=== PATIENT | female | born 1990 | race Caucasian/White ===

== ENCOUNTER 2017-09-28 15:29 | Emergency (ER) | payer OTHER ==
--- NOTE | 2017-09-28 15:35 | ED Physician Documentation ---
PD HPI CHEST PAIN - Stated complaint Stated Complaint: SOA/CHEST PX/ELEVATED HEART RATE - History obtained from History obtained from: Patient - History of Present Illness Timing - onset: How many months ago (1) Timing - onset during: Rest Timing - duration: Months Timing - details: Gradual onset (she has felt some dyspnea, heart rate feeling fast, and anxious for the past month. Some symptoms prior to moving here, while packing house. Drove from [place] here. Having symptoms while moving in, but has persisted even with resting. Not having allergy/URI symptoms. No cough. Symptoms increased generally the past few days.), Waxing and waning Quality: Tightness, Aching, Other (feeling like heart is going fast, but not irregular.) Location: Substernal, Right chest Radiation: No: Jaw, Neck, Back Improved by: No: Rest Worsened by: Exertion. No: Inspiration, Eating, Movement Associated symptoms: Shortness of air, Palpitations. No: Nausea, Feeling faint / dizzy, General Weakness, Cough Similar symptoms before: Has not had sx before Recently seen: Not recently seen Review of Systems Constitutional: reports: Fatigue. denies: Fever, Chills, Myalgias, Weight Loss Nose: denies: Rhinorrhea / runny nose, Congestion Throat: reports: Sore throat (some in mornings) Cardiac: reports: Chest pain / pressure (right lower ribs pain after lifting last week, hurting on and off.), Palpitations. denies: Pedal edema, Calf pain Respiratory: reports: Dyspnea. denies: Cough, Wheezing GI: denies: Nausea, Vomiting, Diarrhea, Bloody / black stool : reports: LMP (ended few days ago). denies: Dysuria, Frequency, Discharge, Irregular menses Skin: denies: Rash, Lesions Neurologic: reports: Generalized weakness. denies: Focal weakness, Numbness, Near syncope Psychiatric: denies: Depressed, Insomnia Endocrine: denies: Weight loss, Easy bruising / bleeding Immunocompromised: denies: Immunocompromised PD PAST MEDICAL HISTORY - Past Medical History Cardiovascular: None Respiratory: None Neuro: None Endocrine/Autoimmune: None - Present Medications Home Medications: Ambulatory Orders Medication Instructions Recorded Confirmed Ibuprofen 300 mg PO BID #240 ml 09/28/17 Propranolol HCl 10 mg PO DAILY #30 ml 09/28/17 - Allergies Allergies/Adverse Reactions: Allergies Allergy/AdvReac Type Severity Reaction Status Date / Time azithromycin [From Zithromax] Allergy Unknown Verified 09/28/17 15:43 Penicillins Allergy Unknown Verified 09/28/17 15:43 PD ED PE NORMAL - Vitals Vital signs reviewed: Yes - General General: Alert and oriented X 3, No acute distress, Well developed/nourished - HEENT HEENT: PERRL, EOMI, Ears normal, Moist mucous membranes, Pharynx benign - Neck Neck: Supple, no meningeal sign, No adenopathy, Thyroid normal - Cardiac Cardiac: RRR, No murmur, No rub - Respiratory Respiratory: Clear bilaterally - Abdomen Abdomen: Normal bowel sounds, Soft, Non distended, No organomegaly, Other ( mildly tender right lower ribs laterally) - Back Back: No CVA TTP, No spinal TTP - Derm Derm: Normal color, Warm and dry, No rash - Extremities Extremities: No deformity, No tenderness to palpate, Normal ROM s pain, No edema , No calf tenderness / cord - Neuro Neuro: Alert and oriented X 3, No motor deficit, Normal speech - Psych Psych: Normal mood, Normal affect Results - Vitals Vitals: Oxygen O2 Source Room air - EKG (time done) 15:38 Rate: Rate (enter#) (90) Rhythm: NSR [place]: Normal Intervals: Normal [place] QRS: Normal Ischemia: Normal ST segments, Non specific changes (diffuse t wave flattening, mild). No: ST elevation c/w ischemia, ST depression, T wave inversion Compare to prior EKG: Old EKG unavailable - Labs Labs: Laboratory Tests 09/28/17 09/28/17 09/28/17 16:03 16:03 16:03 WBC 8.5 RBC 4.86 Hgb 14.5 Hct 42.7 MCV 87.9 MCH 29.8 MCHC 33.9 RDW 12.9 Plt Count 265 MPV 7.3 L Neut # 5.9 Lymph # 1.8 [place] # 0.7 Eos # 0.1 Baso # 0.0 Absolute Nucleated RBC 0.00 Nucleated RBC % 0.0 ESR 6 D-Dimer 238.5 Sodium Potassium Chloride Carbon Dioxide Anion Gap BUN Creatinine Estimated GFR (MDRD) Glucose Calcium Total Bilirubin AST ALT Alkaline Phosphatase C-Reactive Protein Total Protein Albumin Globulin Albumin/Globulin Ratio Lipase TSH Urine Color Urine Clarity Urine pH Ur Specific [place] Urine Protein Urine Glucose (UA) Urine Ketones Urine Occult Blood Urine Nitrite Urine Bilirubin Urine Urobilinogen Ur Leukocyte Esterase Ur Microscopic Review Urine Culture Comments Urine HCG, Qual 09/28/17 09/28/17 09/28/17 16:03 16:03 17:18 WBC RBC Hgb Hct MCV MCH MCHC RDW Plt Count MPV Neut # Lymph # [place] # Eos # Baso # Absolute Nucleated RBC Nucleated RBC % ESR D-Dimer Sodium 140 Potassium 3.6 Chloride 104 Carbon Dioxide 25 Anion Gap 11.0 BUN 9 Creatinine 0.5 Estimated GFR (MDRD) 149 Glucose 107 H Calcium 9.9 Total Bilirubin 0.6 AST 21 ALT 19 Alkaline Phosphatase 46 C-Reactive Protein < 1.0 Total Protein 8.4 H Albumin 5.3 Globulin 3.1 Albumin/Globulin Ratio 1.7 Lipase 25 TSH 1.58 Urine Color YELLOW Urine Clarity CLEAR Urine pH 7.0 Ur Specific [place] 1.010 Urine Protein NEGATIVE Urine Glucose (UA) NEGATIVE Urine Ketones NEGATIVE Urine Occult Blood NEGATIVE Urine Nitrite NEGATIVE Urine Bilirubin NEGATIVE Urine Urobilinogen 0.2 (NORMAL) Ur Leukocyte Esterase NEGATIVE Ur Microscopic Review NOT INDICATED Urine Culture Comments NOT INDICATED Urine HCG, Qual NEGATIVE - Rads (name of study) chest Radiology: Prelim report reviewed, EMP read contemporaneously (normal) Procedures - Bedside sono Bedside sono by EMP: Normal concentric heart contractions. Almost hyperdynamic. No effusion seen. Heart size seems normal. PD MEDICAL DECISION MAKING - ED course Complexity details: re-evaluated patient, considered differential, d/w patient Departure - Departure Disposition: 01 Home, Self Care Clinical Impression: Palpitations Dyspnea Qualifiers: Dyspnea type: shortness of breath Qualified Code(s): R06.02 - Shortness of breath Condition: Stable Record reviewed to determine appropriate education?: Yes Follow-Up: [facility] [Provider Group] Prescriptions: Ibuprofen 300 mg PO BID #240 ml Propranolol HCl 10 mg PO DAILY #30 ml Comments: Take propranolol daily for the next week. Ibuprofen twice daily for the next week as well. [email or web address] tomorrow and get an appointment for next week. Follow-up if worsening sooner. Discharge Date/Time: 09/28/17 19:26
[2017-09-28 16:11] LABS: BASOPHILS % (AUTO) 0.4 %; EOSINOPHILS # (AUTO) 0.1 10^3/uL (0.0-0.7); EOSINOPHILS % (AUTO) 1.2 %; HCT - HEMATOCRIT 42.7 % (37.0-47.0); HGB - HEMOGLOBIN 14.5 g/dL (12.0-16.0); LYMPHOCYTES # (AUTO) 1.8 10^3/uL (1.5-3.5); LYMPHOCYTES % (AUTO) 21.3 %; MEAN CORPUSCULAR HEMOGLOBIN 29.8 pg (27.0-31.0); MEAN CORPUSCULAR HGB CONC 33.9 g/dL (32.0-36.0); MEAN CORPUSCULAR VOLUME 87.9 fL (81.0-99.0); MEAN PLATELET VOLUME 7.3 fL (7.9-10.8); MONOCYTES # (AUTO) 0.7 10^3/uL (0.0-1.0); NEUTROPHILS # (AUTO) 5.9 10^3/uL (1.5-6.6); NEUTROPHILS % (AUTO) 69.1 %; RED BLOOD COUNT 4.86 10^6/uL (4.20-5.40); RED CELL DISTRIBUTION WIDTH 12.9 % (12.0-15.0); UNCORRECTED WHITE BLOOD COUNT 8.5 x10^3/uL; WHITE BLOOD COUNT 8.5 x10^3/uL (4.8-10.8)
[2017-09-28 16:38] LABS: ALBUMIN/GLOBULIN RATIO 1.7 (1.0-2.2); BILIRUBIN,TOTAL 0.6 mg/dL (0.2-1.0); BUN - BLOOD UREA NITROGEN 9 mg/dL (6-20); CALCIUM 9.9 mg/dL (8.5-10.3); CARBON DIOXIDE - CO2 25 mmol/L (21-32); CHLORIDE 104 mmol/L (101-111); CREATININE 0.5 mg/dL (0.4-1.0); GFR - MDRD 149 (>89); GLUCOSE 107 mg/dL (70-100); LIPASE 25 U/L (22-51); POTASSIUM 3.6 mmol/L (3.5-5.0); SODIUM 140 mmol/L (135-145); TOTAL PROTEIN 8.4 g/dL (6.7-8.2)
[2017-09-28 17:43] LABS: BILIRUBIN,URINE NEGATIVE (NEGATIVE)
[2017-09-28 17:47] LABS: UA CHARGE (STRIP ONLY) YES; UR CULTURE IF IND NOT INDICATED
[2017-09-28 17:48] LABS: HCG UR QUAL NEGATIVE
--- NOTE | 2017-09-28 17:48 | XRAY Preliminary Report ---
Exam: XR CHEST 2 VIEW PA/LAT IMPRESSION: Normal 2-view chest radiography. [facility] SITE ID: [id number]
--- NOTE | 2017-09-28 17:49 | XRAY Report ---
EXAM: CHEST RADIOGRAPHY EXAM DATE: 09/28/2017 05:31 PM. CLINICAL HISTORY: Right lower chest pain/injury. COMPARISON: None. TECHNIQUE: 2 views. FINDINGS: Lungs/Pleura: No focal opacities evident. No pleural effusion. No pneumothorax. Normal volumes. Mediastinum: Heart and mediastinal contours are unremarkable. Other: No bony abnormality identified. IMPRESSION: Normal 2-view chest radiography. [facility] Referring Provider Line: [phone] SITE ID: [id number]
[2017-09-28] MEDS ORDERED: ACETAMINOPHEN 325 MG TABLET PO STA (18:31)
[2017-09-28] MEDS ORDERED: DEXAMETHASONE 10 MG/ML VIAL PO STA (18:32)
[2017-09-28] MEDS ORDERED: PROPRANOLOL 10 MG TABLET PO STA (18:41)
[2017-09-28] MEDS ORDERED: ACETAMINOPHEN 325 MG TABLET PO ONE ×2 (19:07→19:20)
[2017-09-28] MEDS ORDERED: DEXAMETHASONE 10 MG/ML VIAL ONE (19:07)
[2017-09-28 19:17] VITALS: BP 121/84
== END 2017-09-28 19:26 | disposition home or self-care (01) ==
LOC: ED 15:29
DX: R00.2 Palpitations (principal); R06.02 Shortness of breath
CPT/HCPCS: 36415; 71020; 80053; 81003; 81025; 83690; 84443; 85025; 85379; 85651; 86140; 93005; 99283; 99284; A9270; 81001; 87086